=== PATIENT | female | born 1980 | race Caucasian/White ===

== ENCOUNTER 2017-12-29 17:39 | Outpatient (CLI) | payer MEDICAID ==
[~2017-12-29] VITALS: Ht 157.5 cm; Wt 76.8 kg
[~2017-12-29 17:39] MED LIST: DOCU-131 PO; FERR325T18 PO; HYDR-3240 PO; IBUP-1222 PO; INSU100V11 SQ-INSULIN; INSU500I SQ; INSU500V SQ; NPH,100V SQ; NPH,100V SQ-INSULIN; OXYC10TA6 PO; SUMA25TA3 PO
[2017-12-29 18:03] VITALS: BP 144/89
[2017-12-29 18:22] LABS: BASOPHILS # (AUTO) 0.03 x10^3/uL (0-0.1); BASOPHILS % (AUTO) 0 % (0-1); EOSINOPHILS # (AUTO) 0.03 x10^3/uL (0-0.4); EOSINOPHILS % (AUTO) 0 % (1-7); LYMPHOCYTES # (AUTO) 1.75 x10^3/uL (1-3.4); LYMPHOCYTES % (AUTO) 19 % (22-44); MD NO; MEAN CORPUSCULAR HEMOGLOBIN 29.4 pg (27.0-34.8); MEAN CORPUSCULAR HGB CONC 33.6 g/dL (32.4-35.8); MEAN CORPUSCULAR VOLUME 87.5 fL (80-100); MEAN PLATELET VOLUME 7.3 fL (7.4-10.4); MONOCYTES # (AUTO) 0.67 x10^3/uL (0.2-0.8); MONOCYTES % (AUTO) 7 % (2-9); NEUTROPHILS # (AUTO) 6.74 x10^3/uL (1.8-6.8); NEUTROPHILS % (AUTO) 73 % (42-75); PLATELET COUNT 271 x10^3/uL (130-400); RED BLOOD COUNT 4.12 x10^6/uL (3.82-5.3); RED CELL DISTRIBUTION WIDTH 14.1 % (9.6-15.2)
[2017-12-29 18:28] LABS: MICROSCOPIC INDICATED
[2017-12-29] MEDS ORDERED: PREN-3 PO (18:30)
[2017-12-29 18:32] LABS: ALANINE AMINOTRANSFERASE 14 U/L (12-78); ANION GAP 13 mmol/L (5-15); CALCIUM 7.8 mg/dL (8.5-10.1); CHLORIDE 108 mmol/L (98-107); CREATININE 0.62 mg/dL (0.55-1.02)
[2017-12-29 18:35] LABS: ALKALINE PHOSPHATASE 110 U/L (45-117); BILIRUBIN,TOTAL 0.2 mg/dL (0.2-1.0); TOTAL PROTEIN 7.4 g/dL (6.4-8.2)
[2017-12-29] MEDS ORDERED: LABE100T3 PO (18:36)
[2017-12-29 18:39] LABS: BILIRUBIN, DIRECT < 0.1 mg/dL (0.1-0.2)
== END 2017-12-29 20:40 | disposition home or self-care (01) ==
LOC: LDOP 17:39
PROVIDERS: ATTEND Student in an Organized Health Care Education/Training Program
DX: O10.919 Unspecified pre-existing hypertension complicating pregnancy, unspecified trimester (principal); Z3A.00 Weeks of gestation of pregnancy not specified
CPT/HCPCS: 36415; 59025; 80053; 81001; 82248; 82570; 84156; 84550; 85025; 99211; G0463

== ENCOUNTER 2017-12-30 03:02 | Inpatient (IN) | payer MEDICAID ==
[~2017-12-30] VITALS: Ht 157.5 cm; Wt 77.0 kg
[~2017-12-30 03:02] MED LIST changes: +LABE100T3 PO; +PREN-3 PO
[2017-12-30] MEDS ORDERED: MAGNESIUM SULF. PMX 20GM/500ML 500 ML IV ONE ×4 (03:23→20:19)
[2017-12-30] MEDS ORDERED: MAGNESIUM SULFATE PMX 4GM/100M 100 ML IVPB ONE (03:30)
[2017-12-30] MEDS ORDERED: LACTATED RINGERS 1,000 ML IV PRN ×2 (03:52→22:58)
[2017-12-30] MEDS ORDERED: BETAMETHASONE 6 MG/ML, 5ML IM ONE (04:04)
[2017-12-30] MEDS: BETAMETHASONE 6 MG/ML, 5ML IM SCH ×2 (04:13→23:06)
[2017-12-30 04:23] LABS: BASOPHILS # (AUTO) 0.04 x10^3/uL (0-0.1); BASOPHILS % (AUTO) 0 % (0-1); EOSINOPHILS # (AUTO) 0.03 x10^3/uL (0-0.4); EOSINOPHILS % (AUTO) 0 % (1-7); LYMPHOCYTES # (AUTO) 1.66 x10^3/uL (1-3.4); LYMPHOCYTES % (AUTO) 14 % (22-44); MD NO; MEAN CORPUSCULAR HGB CONC 33.6 g/dL (32.4-35.8); MEAN CORPUSCULAR VOLUME 86.1 fL (80-100); MEAN PLATELET VOLUME 7.5 fL (7.4-10.4); MONOCYTES # (AUTO) 0.61 x10^3/uL (0.2-0.8); MONOCYTES % (AUTO) 5 % (2-9); NEUTROPHILS # (AUTO) 9.65 x10^3/uL (1.8-6.8); NEUTROPHILS % (AUTO) 81 % (42-75); PLATELET COUNT 323 x10^3/uL (130-400); RED BLOOD COUNT 4.23 x10^6/uL (3.82-5.3)
[2017-12-30 04:27] LABS: ALANINE AMINOTRANSFERASE 15 U/L (12-78); ALBUMIN 2.9 g/dL (3.4-5.0); ANION GAP 12 mmol/L (5-15); CALCIUM 8.2 mg/dL (8.5-10.1); CHLORIDE 107 mmol/L (98-107); CREATININE 0.67 mg/dL (0.55-1.02)
[2017-12-30 04:29] LABS: ALKALINE PHOSPHATASE 106 U/L (45-117); BILIRUBIN,TOTAL 0.4 mg/dL (0.2-1.0); TOTAL PROTEIN 7.3 g/dL (6.4-8.2)
[2017-12-30 05:32] LABS: AMPHETAMINE SCREEN, URINE Negative (Negative); BARBITURATE SCREEN, URINE Negative (Negative); BENZODIAZEPINE SCREEN, URINE Negative (Negative); CANNABINOID SCREEN, URINE Negative (Negative); COCAINE SCREEN, URINE Negative (Negative); METHADONE SCREEN, URINE Negative (Negative); MICROSCOPIC INDICATED; OPIATE SCREEN, URINE Negative (Negative)
[2017-12-30 05:48] LABS: CREATININE,URINE RANDOM 87.8 mg/dL
[2017-12-30 07:46] VITALS: BP 135/71
[2017-12-30] MEDS ORDERED: ONDANSETRON ODT 4 MG ONE ×2 (07:56→18:04)
[2017-12-30] MEDS: ONDANSETRON ODT 4 MG PO PRN ×2 (07:57→18:05)
[2017-12-30] MEDS ORDERED: LABETALOL 200 MG TABLET ONE ×2 (08:13→19:57)
[2017-12-30] MEDS: LABETALOL 200 MG TABLET PO SCH ×2 (08:17→19:59)
[2017-12-30] MEDS ORDERED: ACETAMINOPHEN 325 MG TABLET ONE (09:57)
[2017-12-30] MEDS: ACETAMINOPHEN 325 MG TABLET PO PRN (09:59)
[2017-12-30] MEDS ORDERED: FENTANYL PF 100 MCG/2ML ONE ×2 (10:37→13:06)
[2017-12-30] MEDS ORDERED: FENTANYL PF 100 MCG/2ML IV ONE (11:00)
[2017-12-30] MEDS: MAGNESIUM SULF. PMX 20GM/500ML 500 ML IV SCH ×3 (11:52→22:58)
[2017-12-30] MEDS: LACTATED RINGERS 1,000 ML IV PRN ×3 (11:56→22:25)
[2017-12-30] MEDS ORDERED: FENTANYL PF 100 MCG/2ML IVPush PRN (13:30)
[2017-12-30] MEDS ORDERED: NEWBORN KIT ONE (14:12)
[2017-12-30] MEDS ORDERED: HYDROmorphone 1 MG/ML, 1ML IV ONE ×2 (15:00→18:00)
[2017-12-30] MEDS ORDERED: HYDROmorphone 2 MG/ML, 1ML ONE ×3 (15:01→22:17)
[2017-12-30 16:28] LABS: BASOPHILS # (AUTO) 0.01 x10^3/uL (0-0.1); BASOPHILS % (AUTO) 0 % (0-1); EOSINOPHILS % (AUTO) 0 % (1-7); LYMPHOCYTES % (AUTO) 9 % (22-44); MD NO; MEAN CORPUSCULAR HEMOGLOBIN 29.5 pg (27.0-34.8); MEAN CORPUSCULAR HGB CONC 34.1 g/dL (32.4-35.8); MEAN CORPUSCULAR VOLUME 86.6 fL (80-100); MEAN PLATELET VOLUME 7.4 fL (7.4-10.4); MONOCYTES # (AUTO) 0.47 x10^3/uL (0.2-0.8); MONOCYTES % (AUTO) 4 % (2-9); NEUTROPHILS # (AUTO) 9.96 x10^3/uL (1.8-6.8); NEUTROPHILS % (AUTO) 87 % (42-75); PLATELET COUNT 353 x10^3/uL (130-400); RED BLOOD COUNT 4.53 x10^6/uL (3.82-5.3); RED CELL DISTRIBUTION WIDTH 13.8 % (9.6-15.2)
[2017-12-30 16:31] LABS: ALANINE AMINOTRANSFERASE 18 U/L (12-78); ALBUMIN 3.2 g/dL (3.4-5.0); ANION GAP 14 mmol/L (5-15); CALCIUM 6.7 mg/dL (8.5-10.1); CHLORIDE 106 mmol/L (98-107); CREATININE 0.52 mg/dL (0.55-1.02)
[2017-12-30 16:33] LABS: ALKALINE PHOSPHATASE 126 U/L (45-117); BILIRUBIN, DIRECT 0.9 mg/dL (0.1-0.2); BILIRUBIN,TOTAL 1.5 mg/dL (0.2-1.0); TOTAL PROTEIN 7.8 g/dL (6.4-8.2)
[2017-12-30] MEDS ORDERED: METOCLOPRAMIDE 5 MG/ML, 2ML IVPush PRN (18:00)
[2017-12-30 19:37] LABS: BASOPHILS # (AUTO) 0.03 x10^3/uL (0-0.1); BASOPHILS % (AUTO) 0 % (0-1); EOSINOPHILS % (AUTO) 0 % (1-7); LYMPHOCYTES # (AUTO) 1.17 x10^3/uL (1-3.4); LYMPHOCYTES % (AUTO) 10 % (22-44); MD NO; MEAN CORPUSCULAR HEMOGLOBIN 29.8 pg (27.0-34.8); MEAN CORPUSCULAR HGB CONC 34.5 g/dL (32.4-35.8); MEAN CORPUSCULAR VOLUME 86.3 fL (80-100); MEAN PLATELET VOLUME 7.3 fL (7.4-10.4); MONOCYTES # (AUTO) 0.91 x10^3/uL (0.2-0.8); MONOCYTES % (AUTO) 8 % (2-9); NEUTROPHILS # (AUTO) 9.35 x10^3/uL (1.8-6.8); NEUTROPHILS % (AUTO) 82 % (42-75); PLATELET COUNT 331 x10^3/uL (130-400); RED BLOOD COUNT 4.38 x10^6/uL (3.82-5.3); RED CELL DISTRIBUTION WIDTH 13.8 % (9.6-15.2)
[2017-12-30] MEDS ORDERED: morphine SULFATE/PF 0.5 MG/ML, 10ML ONE (19:53)
[2017-12-30] MEDS ORDERED: SODIUM CITRATE/CITRIC ACID 30 ML UDC ONE (19:58)
[2017-12-30] MEDS ORDERED: METOCLOPRAMIDE 10MG TABLET ONE (19:58)
[2017-12-30] MEDS ORDERED: SODIUM CITRATE/CITRIC ACID 30 ML UDC PO ONE (20:00)
[2017-12-30] MEDS ORDERED: LACTATED RINGERS 1,000 ML IV SCH ×2 (20:00→21:49)
[2017-12-30] MEDS ORDERED: METOCLOPRAMIDE 10MG TABLET PO PRN (20:00)
[2017-12-30] MEDS ORDERED: OXYTOCIN 30U/ 0.9% NaCL 500ML 500 ML IV SCH (20:00)
[2017-12-30] MEDS ORDERED: LACTATED RINGERS 1,000 ML IVBOLUS ONE (20:00)
[2017-12-30 20:33] LABS: BASOPHILS # (AUTO) 0.06 x10^3/uL (0-0.1); BASOPHILS % (AUTO) 1 % (0-1); EOSINOPHILS % (AUTO) 0 % (1-7); LYMPHOCYTES # (AUTO) 1.29 x10^3/uL (1-3.4); LYMPHOCYTES % (AUTO) 11 % (22-44); MD NO; MEAN CORPUSCULAR HEMOGLOBIN 29.3 pg (27.0-34.8); MEAN CORPUSCULAR HGB CONC 33.8 g/dL (32.4-35.8); MEAN CORPUSCULAR VOLUME 86.8 fL (80-100); MEAN PLATELET VOLUME 7.2 fL (7.4-10.4); MONOCYTES # (AUTO) 0.84 x10^3/uL (0.2-0.8); MONOCYTES % (AUTO) 7 % (2-9); NEUTROPHILS # (AUTO) 9.39 x10^3/uL (1.8-6.8); NEUTROPHILS % (AUTO) 81 % (42-75); PLATELET COUNT 339 x10^3/uL (130-400); RED BLOOD COUNT 4.32 x10^6/uL (3.82-5.3); RED CELL DISTRIBUTION WIDTH 14.2 % (9.6-15.2)
[2017-12-30] MEDS ORDERED: SODIUM CHLORIDE 0.9% PF 10ML ONE ×2 (21:25)
[2017-12-30] MEDS ORDERED: PHENYLEPHRINE 10 MG/ML ONE (21:25)
[2017-12-30] MEDS ORDERED: OXYTOCIN 10 UNITS/ML, 1ML ONE (21:25)
[2017-12-30] MEDS ORDERED: WATER-INJECTION,STERILE 10 ML IV ONE (21:25)
[2017-12-30] MEDS ORDERED: EPHEDRINE 50 MG/ML, 1ML ONE (21:25)
[2017-12-30] MEDS ORDERED: CEFAZOLIN 1,000 MG ONE (21:26)
[2017-12-30] MEDS: OXYTOCIN 30U/ 0.9% NaCL 500ML 500 ML IV SCH (21:49)
[2017-12-30] MEDS: LACTATED RINGERS 1,000 ML IV SCH (21:49)
[2017-12-30] MEDS ORDERED: MISOPROSTOL 200 MCG TABLET PR PRN (22:00)
[2017-12-30] MEDS ORDERED: OXYcodone/APAP 5/325MG TABLET PO PRN (22:00)
[2017-12-30] MEDS ORDERED: CARBOPROST TROMETHAMINE 250 MCG/ML, 1ML IM PRN (22:00)
[2017-12-30] MEDS ORDERED: ONDANSETRON 2MG/ML, 2ML IV PRN (22:00)
[2017-12-30] MEDS ORDERED: METOCLOPRAMIDE 5 MG/ML, 2ML IV PRN (22:00)
[2017-12-30] MEDS ORDERED: ACETAMINOPHEN 325 MG TABLET PO PRN (22:00)
[2017-12-30] MEDS ORDERED: BISACODYL 10 MG SUPP PR PRN (22:00)
[2017-12-30] MEDS ORDERED: GLYCERIN ADULT SUPP PR PRN (22:00)
[2017-12-30] MEDS ORDERED: OXYTOCIN 30U/ 0.9% NaCL 500ML 500 ML ONE (22:07)
[2017-12-30] MEDS: HYDROmorphone 1 MG/ML, 1ML IV PRN ×2 (22:25→23:08)
[2017-12-30] MEDS ORDERED: OXYcodone/APAP 5/325MG TABLET ONE (23:19)
[2017-12-30] MEDS: OXYcodone/APAP 5/325MG TABLET PO PRN (23:21)
[2017-12-31 02:01] VITALS: BP 110/59
[2017-12-31] MEDS ORDERED: OXYcodone/APAP 5/325MG TABLET ONE ×5 (03:11→21:06)
[2017-12-31] MEDS: OXYcodone/APAP 5/325MG TABLET PO PRN ×5 (03:12→21:08)
[2017-12-31 05:08] VITALS: BP 105/57
[2017-12-31] MEDS ORDERED: MAGNESIUM SULF. PMX 20GM/500ML 500 ML IV ONE ×2 (06:18→16:34)
[2017-12-31] MEDS: MAGNESIUM SULF. PMX 20GM/500ML 500 ML IV SCH ×2 (06:20→16:39)
[2017-12-31 07:24] LABS: ALBUMIN 2.3 g/dL (3.4-5.0); ANION GAP 8 mmol/L (5-15); CHLORIDE 105 mmol/L (98-107)
[2017-12-31 07:27] LABS: BASOPHILS # (AUTO) 0.04 x10^3/uL (0-0.1); BASOPHILS % (AUTO) 0 % (0-1); EOSINOPHILS # (AUTO) 0.02 x10^3/uL (0-0.4); EOSINOPHILS % (AUTO) 0 % (1-7); LYMPHOCYTES # (AUTO) 1.43 x10^3/uL (1-3.4); LYMPHOCYTES % (AUTO) 13 % (22-44); MD NO; MEAN CORPUSCULAR HEMOGLOBIN 28.9 pg (27.0-34.8); MEAN CORPUSCULAR HGB CONC 33.6 g/dL (32.4-35.8); MEAN PLATELET VOLUME 6.8 fL (7.4-10.4); MONOCYTES % (AUTO) 9 % (2-9); NEUTROPHILS # (AUTO) 8.88 x10^3/uL (1.8-6.8); NEUTROPHILS % (AUTO) 78 % (42-75); PLATELET COUNT 302 x10^3/uL (130-400); RED BLOOD COUNT 3.63 x10^6/uL (3.82-5.3); RED CELL DISTRIBUTION WIDTH 14.1 % (9.6-15.2)
[2017-12-31 07:31] LABS: ALANINE AMINOTRANSFERASE 19 U/L (12-78); ALKALINE PHOSPHATASE 99 U/L (45-117); BILIRUBIN, DIRECT 0.5 mg/dL (0.1-0.2); BILIRUBIN,TOTAL 0.8 mg/dL (0.2-1.0); CREATININE 0.38 mg/dL (0.55-1.02); TOTAL PROTEIN 5.9 g/dL (6.4-8.2)
[2017-12-31 07:40] LABS: CALCIUM 5.7 mg/dL (8.5-10.1)
[2017-12-31] MEDS: OXYTOCIN 30U/ 0.9% NaCL 500ML 500 ML IV SCH ×2 (07:49→17:49)
[2017-12-31] MEDS: LABETALOL 200 MG TABLET PO SCH ×2 (08:00→19:11)
[2017-12-31 08:05] VITALS: BP 113/57
[2017-12-31] MEDS: PRENATAL VIT/IRON/FA 1 EACH TABLET PO SCH (09:00)
[2017-12-31] MEDS ORDERED: morphine SULFATE 10 MG/ML, 1ML ONE ×2 (09:23→18:45)
[2017-12-31] MEDS: morphine SULFATE 10 MG/ML, 1ML IVPush PRN ×3 (09:30→23:00)
[2017-12-31] MEDS: LACTATED RINGERS 1,000 ML IV SCH ×2 (17:07→17:49)
[2017-12-31] MEDS ORDERED: ACETAMINOPHEN 325 MG TABLET ONE (17:58)
[2017-12-31] MEDS: ACETAMINOPHEN 325 MG TABLET PO PRN (18:00)
[2017-12-31] MEDS ORDERED: LABETALOL 200 MG TABLET ONE (19:09)
[2017-12-31 22:00] VITALS: BP 108/70
[2018-01-01 02:40] VITALS: BP 112/67
[2018-01-01] MEDS: OXYcodone/APAP 5/325MG TABLET PO PRN ×5 (02:53→21:28)
[2018-01-01] MEDS: OXYTOCIN 30U/ 0.9% NaCL 500ML 500 ML IV SCH (03:24)
[2018-01-01] MEDS: LACTATED RINGERS 1,000 ML IV SCH (03:26)
[2018-01-01] MEDS: morphine SULFATE 10 MG/ML, 1ML IVPush PRN ×5 (06:38→22:17)
[2018-01-01 07:00] VITALS: BP 115/73
[2018-01-01] MEDS: PRENATAL VIT/IRON/FA 1 EACH TABLET PO SCH (08:14)
[2018-01-01] MEDS: DOCUSATE 100 MG CAPSULE PO PRN ×2 (08:14→21:28)
[2018-01-01] MEDS: LABETALOL 200 MG TABLET PO SCH ×2 (08:15→20:15)
[2018-01-01 12:00] VITALS: BP 120/72
[2018-01-01 16:00] VITALS: BP 128/84
[2018-01-01 19:30] VITALS: BP 122/80
[2018-01-02 00:01] VITALS: BP 122/76
[2018-01-02 05:00] VITALS: BP 131/84
[2018-01-02] MEDS: OXYcodone/APAP 5/325MG TABLET PO PRN ×5 (05:16→20:37)
[2018-01-02 08:00] VITALS: BP 136/83
[2018-01-02] MEDS: PRENATAL VIT/IRON/FA 1 EACH TABLET PO SCH (08:10)
[2018-01-02] MEDS: DOCUSATE 100 MG CAPSULE PO PRN ×2 (08:10→20:37)
[2018-01-02] MEDS: LABETALOL 200 MG TABLET PO SCH ×2 (08:10→20:37)
[2018-01-02] MEDS: morphine SULFATE 10 MG/ML, 1ML IVPush PRN (08:13)
[2018-01-02] MEDS: LACTATED RINGERS 1,000 ML IV SCH (09:49)
[2018-01-02] MEDS: OXYTOCIN 30U/ 0.9% NaCL 500ML 500 ML IV SCH (09:49)
[2018-01-02] MEDS ORDERED: DIPH,PERTUSS(ACELL),TET VAC/PF NC IM-VACC ONE (11:06)
[2018-01-02 20:35] VITALS: BP 128/86
[2018-01-03 00:30] VITALS: BP 120/76
[2018-01-03] MEDS: OXYcodone/APAP 5/325MG TABLET PO PRN ×3 (00:42→12:36)
[2018-01-03 07:50] VITALS: BP 144/94
[2018-01-03] MEDS: DOCUSATE 100 MG CAPSULE PO PRN (07:51)
[2018-01-03] MEDS: LABETALOL 200 MG TABLET PO SCH (07:51)
[2018-01-03] MEDS: PRENATAL VIT/IRON/FA 1 EACH TABLET PO SCH (07:51)
[2018-01-03] MEDS ORDERED: OXYC1TAB9 PO (12:10)
[2018-01-03] MEDS ORDERED: LABE200T3 PO (12:12)
== END 2018-01-03 14:09 | disposition home or self-care (01) | DRG 765 ==
LOC: LDOP 03:02 → LDIP 03:21 → INTOOBSV 03:43 → LDIP 03:43 → UNDOADMOB 03:43 → OBSVTOIN 13:40 → 2NW 12-31 21:39
PROVIDERS: ADMIT Student in an Organized Health Care Education/Training Program; ATTEND Student in an Organized Health Care Education/Training Program
PROC: 10D00Z1 Extraction of Products of Conception, Low, Open Approach (ICD-10-PCS; principal; 2017-12-30)
DX: O60.14X0 Preterm labor third trimester with preterm delivery third trimester, not applicable or unspecified (principal); O15.1 Eclampsia complicating labor; O99.354 Diseases of the nervous system complicating childbirth; G40.89 Other seizures; O34.211 Maternal care for low transverse scar from previous cesarean delivery; G89.29 Other chronic pain; G43.909 Migraine, unspecified, not intractable, without status migrainosus; M54.9 Dorsalgia, unspecified; Z3A.31 31 weeks gestation of pregnancy; Z37.0 Single live birth; Z80.1 Family history of malignant neoplasm of trachea, bronchus and lung; Z82.49 Family history of ischemic heart disease and other diseases of the circulatory system; Z82.5 Family history of asthma and other chronic lower respiratory diseases; Z86.32 Personal history of gestational diabetes; Z87.891 Personal history of nicotine dependence
CPT/HCPCS: 36415; 70450; 80053; 80307; 81001; 82248; 82570; 82803; 83615; 83735; 84156; 84550; 85025; 86850; 86900; 88307; G0378; J0690; J0702; J1170; J2274; J2405; J3010; Q0162; J2270; J2370; J2590; J3475; J7120